=== PATIENT | female | born 1960 | race Caucasian/White ===

== ENCOUNTER 2017-06-24 07:30 | Inpatient (IN) ==
[~2017-06-24 07:30] MED LIST: ACETAMINOPHEN 500 MG TABLET PO ONE; DEXAMETHASONE 4 MG/ML INJECTION IVP ONE; FAMOTIDINE PB 20 MG/50 ML BAG IV ONE; LIDOCAINE 1% (10mg/ml) 2mL INJ PF SDV ID ONE; METOCLOPRAMIDE 10mg/2ml INJECTION IVP ONE; ONDANSETRON 4 MG/2 ML INJECTION IVP ONE; TRANEXAMIC ACID 1,000 MG in NS 100 ML IV ONE
[2017-06-24] MEDS ORDERED: EPINEPHrine PF 0.25 MG, BUPIVACAINE 0.25% PF 30 ML, MORPHINE SULFATE 15 MG, KETOROLAC I... OPSITE ONE (08:00)
[2017-06-24 10:08] VITALS: BMI 30.7
[2017-06-24] MEDS ORDERED: PROPOFOL 500 MG/50 ML VIAL ONE ×2 (10:15→11:52)
[2017-06-24] MEDS ORDERED: MIDAZOLAM 2mg/2ml INJECTION ONE (10:15)
[2017-06-24] MEDS: LR 1,000 ML IV SCH ×2 (10:30→12:41)
[2017-06-24] MEDS: NOZIN NASAL SWAB NAS ONE ×3 (10:31→10:37)
[2017-06-24] MEDS ORDERED: CEFAZOLIN 1 G INJECTION IVP ONE (10:36)
--- NOTE | 2017-06-24 10:54 | Anesthesia Preoperative Report ---
Anesthesia Preoperative Record - Date and Time Date: 06/24/17 Preoperative Diagnosis: Rt HARSH M16.11 Proposed Procedure: Right Total Hip NPO Since Date: 06/24/17 NPO Since Time: 00:00 Allergies/Adverse Reactions: Allergies Allergy/AdvReac Type Severity Reaction Status Date / Time amoxicillin Allergy Unknown Verified 06/24/17 10:15 - Vital Signs Vital Signs: Temperature 98.5 F 06/24/17 10:06 Pulse Rate 88 06/24/17 10:30 Respiratory Rate 15 06/24/17 10:06 Blood Pressure 164/88 H 06/24/17 10:06 Pulse Oximetry 97 06/24/17 10:06 Height and Weight: Height 5 ft 1 in Weight 73.6 kg Body Mass Index 30.7 - Medications Inpatient Medications: Current Medications Epinephrine HCl 0.25 mg/Bupivacaine HCl 30 ml/Morphine Sulfate 15 mg/Ketorolac Tromethamine 60 mg/Sodium Chloride 65.25 mls @ 1 mls/hr OPSITE INTRAOP ONE PRN Reason: Protocol Stop: 06/27/17 01:14 Lactated Ringer's (Lactated Ringers) 1,000 mls @ 50 mls/hr IV .Q20H HARVEY Last Admin: 06/24/17 10:30 Dose: 50 mls/hr Isopropyl Alcohol (Nozin Nasal Swab) 1 each CATALINO PREOP ONE Stop: 06/24/17 14:29 Last Admin: 06/24/17 10:37 Dose: 1 each Sodium Chloride (Iv Flush) 10 - 80 ml IV PRN PRN PRN Reason: [place] Home Medications: Home Medications Medication Instructions Recorded Confirmed Type multivitamin tablet 1 tab PO QAM 04/15/17 06/06/17 History Ascorbate Calcium [Vitamin C] 1,000 mg PO DAILY 06/06/17 06/06/17 History Calcium 600 + D [Caltrate + D] 2 tab PO DAILY 06/06/17 06/06/17 History [place]-3/Dha/Epa/Fish Oil [Fish Oil 2 each PO DAILY 06/06/17 06/06/17 History [place]-3 EC 1,200 mg] Is Patient on Beta Yon?: No - Medical History Respiratory: Reports: Pneumonia (more than 5 years ago) DENIES: Sleep Apnea Cardiovascular: DENIES: Abnormal EKG, Angina, Arrhythmia, Congestive Heart Failure, Coronary Artery Disease, Heart Murmur, Hypertension, Hypotension, High Cholesterol, Myocardial Infarction, Rheumatic Fever, Valvular Heart Disease, Other Gastrointestional: Reports: Gastroesophageal Reflux Disease (rarely) Neuro/Musculoskeletal: Reports: HX.MS.OSAR (RIGHT HIP), Back Problems (DDD) Renal/Endocrine: DENIES: Diabetes Mellitus Type 1, Diabetes Mellitus Type 2, Renal Failure, Dialysis, Thyroid Disease, Weight Loss, Weight Gain, Other Other History: DENIES: Anesthesia Reactions, Now, Blood Transfusions, Chemotherapy , Cancer, Hemophilia, Malignant Hyperthermia, Sickle Cell Disease, Other - Surgical History GI Surgery/Treatments: Reports: Colonoscopy Musculoskeletal Surgery/Tx: Reports: Other (exc ganglion cyst) Anesthesia Reactions: None Hx Family Anesthesia Reaction: No History of Motion Sickness: No - Social History Smoking Status: Never smoker Substance Use Type: does not use Alcohol Intake Frequency: holidays/special occasions only - Pertinent Findings EKG: Sinus Rhythm - Physical Exam Respiratory Exam: Present: lungs clear, bilateral breath sounds equal Cardiovascular Exam: Present: regular rate and rhythm, no murmur - Airway Assessment Mallampati Score: II TMD: 3 Fingerbreadths Neck Extension: good Overall Assessment: no airway concerns - ASA ASA Score: 2 - Plan Anesthesia: Neuroaxial Regional/Trunk Block: Spinal - Discussion Discussion: Discussed risks/options/alternatives of anesthesia and questions answered. Patient consents. Nursing pain assessment noted. Present for Discussion: spouse Attestation Statement: Prior to the delivery of any anesthetic medication, I examined the patient, developed the plan, obtained the patient's consent and discussed the risk and benefits of the procedure with the patient/guardian. - Additional Information Seen by Anesthesia: Yes
[2017-06-24] MEDS ORDERED: FentaNYL 100 MCG/2 ML INJECTION ONE (11:40)
[2017-06-24] MEDS ORDERED: VANCOMYCIN 1,000 MG INJECTION ONE (11:42)
[2017-06-24] MEDS ORDERED: PROPOFOL 20 ML ONE (12:44)
--- NOTE | 2017-06-24 12:44 | Operative Note ---
- Procedure Preoperative Diagnosis: Right hip primary degenerative joint disease Postoperative Diagnosis: Same as preoperative diagnosis. Surgeon: Josue Chapa MD Intervention Analyst: Orville Albrecht Complications: None. Anesthesia: Spinal. Estimated Blood Loss: See Anesthesia Record. Fluids: Please see Anesthesia Record. Description of Procedure: Mrs. Stiles and her right hip were identified and marked in the preoperative holding area. She was brought back to the operating suite and spinal anesthetic was administered. She was then placed in a lateral decubitus position with her right hip up. The right lower extremity was prepped and draped in my normal sterile fashion. Timeout was performed. The Cubicl robotic arm was used to assist with the surgery. A pelvic array was placed into the iliac crest through three small incisions. A direct superior approach was utilized. An approximately 11 cm incision was made in the skin and dissection carried down to the muscle fascia which was then split in line with skin incision. A checkpoint was placed in the greater trochanter. The short external rotators were identified and tagged and detached. A capsulotomy was performed and the hip dislocated. A femoral neck osteotomy was performed at the pre-templated level measuring down from the femoral head 54 mm. The head was removed and acetabulum exposed. As expected her acetabulum was very small. Labrum was removed. The acetabulum was then registered with the robot. The robotic arm was then used to ream with a 47 reamer. The robot then was again used to place a 38 Trident cup in 40 of tilt and 25 of anteversion. A liner was then placed. The proximal femur was exposed and prepared with a cookie cutter followed by reaming and broaching to a size 4. We trialed with a 0 head this was stable but long so we retied with a -5 head and 127 neck and this was much better. After thorough irrigation a final Accolade 2 size 4 stem with 127 neck was placed. Leg length and offset were checked with the robot and were good. A final -5 ceramic 36 mm head was placed and the hip reduced. Betadine solution was used to irrigate throughout the case. It was followed by normal saline irrigation. Joint cocktail was injected throughout soft tissue. The capsulotomy was repaired with Ethibond. Short external rotators were also repaired with Ethibond. 1 g of vancomycin powder was placed into the wound. The muscle fascia was then repaired with #1 Vicryl. I then left my circulation assistant to close the subcutaneous tissue with 2-0 Vicryl followed by running 4-0 Monocryl skin followed by Dermabond and a sterile dressing. The patient with any placed back into supine position and taken to recovery room in the care of anesthesia.
[2017-06-24] MEDS ORDERED: MEPERIDINE 100 MG/ML INJECTION IVP PRN (13:11)
--- NOTE | 2017-06-24 13:33 | Anesthesia Postoperative Note ---
- Date and Time Date: 06/24/17 Time: 13:32 - Status Patient Participated in Evaluation: Patient Participated in Person Vital Signs: Temperature 97.0 F 06/24/17 13:03 Pulse Rate 83 06/24/17 13:25 Respiratory Rate 20 06/24/17 13:25 Blood Pressure 117/60 06/24/17 13:25 Pulse Oximetry 97 06/24/17 13:25 Respiratory Function: Airway Patent Cardiovascular Function: Regular Pulse EKG: Sinus Rhythm Mental Status: Alert and Oriented Pain Intensity: 2 Hydration: IV Infusing Complications During Recover: None Apparent - Follow-Up Instructions Instructions: Per Surgeon
[2017-06-24] MEDS ORDERED: NOZIN NASAL SWAB NAS ONE (13:41)
[2017-06-24] MEDS ORDERED: Oxycodone *IR* 5 MG TABLET PO PRN (13:41)
[2017-06-24] MEDS ORDERED: DiphenhydrAMINE 25 MG CAPSULE PO PRN (13:41)
[2017-06-24] MEDS ORDERED: ONDANSETRON 4 MG/2 ML INJECTION IVP PRN (13:41)
[2017-06-24] MEDS ORDERED: LORazepam 1 MG TABLET PO PRN (13:41)
[2017-06-24] MEDS ORDERED: DiphenhydrAMINE 50 MG/ML INJECTION IVP PRN (13:41)
--- NOTE | 2017-06-24 13:51 | XRay Report ---
Indication: postoperative image PROCEDURE: XR pelvis w/ 1 view RT hip: Encounter: Initial Comparison: December 04, 2015 Findings: Postoperative changes of right total hip replacement are seen. There is expected postoperative subcutaneous gas. No evidence of hardware failure or acute fracture. No retained radiopaque surgical instruments or sponges seen. Impression: New right total hip prosthesis without evidence of immediate complication. .
[2017-06-24] MEDS: NS 1,000 ML IV SCH (13:59)
[2017-06-24] MEDS: ACETAMINOPHEN 325 MG TABLET PO SCH ×3 (14:00→20:37)
[2017-06-24] MEDS: DEXAMETHASONE 20 MG/5 ML INJECTION IVP SCH ×2 (14:06→21:39)
[2017-06-24] MEDS: NOZIN NASAL SWAB NAS SCH ×2 (14:07→21:39)
[2017-06-24] MEDS ORDERED: FALL RISK - PHARMACY CONSULT XX ONE (14:17)
[2017-06-24] MEDS ORDERED: SALINE FLUSH 10ml SYRINGE IV PRN (14:28)
[2017-06-24 15:31] VITALS: RESP 16
[2017-06-24] MEDS: CEFAZOLIN 2 G in NS 100 ML IV SCH (18:18)
[2017-06-24] MEDS: DOCUSATE SODIUM 100 MG CAPSULE PO SCH (20:39)
[2017-06-24] MEDS: ASPIRIN *EC* 81 MG TABLET PO SCH (20:39)
[2017-06-24] MEDS ORDERED: SENNOSIDES 8.6 MG TABLET PO SCH (21:00)
[2017-06-25] MEDS: NS 1,000 ML IV SCH (02:51)
[2017-06-25] MEDS: CEFAZOLIN 2 G in NS 100 ML IV SCH (02:51)
[2017-06-25] MEDS: NOZIN NASAL SWAB NAS SCH ×2 (05:34→14:03)
[2017-06-25] MEDS: DOCUSATE SODIUM 100 MG CAPSULE PO SCH (08:21)
[2017-06-25] MEDS: ASPIRIN *EC* 81 MG TABLET PO SCH (08:21)
[2017-06-25] MEDS: ACETAMINOPHEN 325 MG TABLET PO SCH ×2 (08:21→12:11)
--- NOTE | 2017-06-25 08:29 | Orthopedic Progress Note ---
Date: Date: 06/25/17 Time: 825 Subjective/Severity of Illness: Cristina is doing great. Pain is controlled. No CP, cough or other complaints. She has been up with good tolerance. Leg length feels good. Labs look good. Anticipates discharge today. Orthopedic Objective PO Vital signs: Temperature 97.5 F 06/25/17 07:28 Pulse Rate 91 06/25/17 07:28 Respiratory Rate 16 06/25/17 07:28 Blood Pressure 126/67 06/25/17 07:28 Pulse Oximetry 92 06/25/17 07:28 Height and Weight: Height 5 ft 1 in Weight 164 lb 14.492 oz Body Mass Index 30.7 - Constitutional General Appearance: Present: alert, cooperative, no acute distress - Respiratory Exam Present: non-labored - Extremities Exam Extremities: Present: pulses intact. Absent: calf tenderness - Surgical Site Incision: Mepilex dressing intact, dressing intact, no drainage - Integumentary Exam Present: pink, warm, dry - Neurological Exam Present: intact to light touch, no deficits - Psychiatric Exam Present: alert, normal affect - Labs Result Diagrams: 06/25/17 03:54 06/25/17 03:54 Abnormal lab results 06/25/17 06/25/17 Range/Units 03:54 03:54 Hgb 11.2 L (12-16) GM/DL Hct 33.8 L (36-46) % Glucose 139 H (65-110) MG/DL H & H 06/25/17 Range/Units 03:54 Hgb 11.2 L (12-16) GM/DL Hct 33.8 L (36-46) % Orthopedic Assessment and Plan (1) Primary osteoarthritis of right hip Status: Acute Assessment and Plan: Current anti-coagulation protocol for VTE prophylaxis. SCD's in place. PT/OT services to improve independent function. Discharge Planning per Case Management. - Anticoagulation Therapy Anticoagulation: ASA 81 mg PO BID x6 weeks Hospital Course Summary Disclaimer: The visit summary below is not to be considered part of the above Progress Note.
[2017-06-25] MEDS ORDERED: POLYETHYL GLYCOL 3350 17gm PACKET PO SCH (09:00)
[2017-06-25 11:46] VITALS: BP 129/69; PULSE 95; TEMP 96.2; O2SAT 97
[2017-06-25] MEDS ORDERED: SENNOSIDES 8.6 MG TABLET PO PRN (12:51)
--- NOTE | 2017-06-25 14:07 | Discharge Summary ---
Orthopedic Discharge Info Date of admission: 06/24/17 09:43 Primary care physician: Ismael Vasquez Attending Physician: Johny Chapa MD Consults: 06/24/17 09:44 Consult to Anesthesiology [CONS] Routine Reason For Exam: Preoperative Assessment 06/24/17 13:41 Case Management Consult [CONS] Routine Reason For Exam: Discharge Planning DME-Walker [CONS] Routine Height: 5 ft 1 in Weight: 162 lb 4.163 oz Total Joint Outpatient Therapy [CONS] Routine Comment: Remove dressing in 2 weeks - Discharge Diagnosis (1) Primary osteoarthritis of right hip Status: Acute - Procedures Procedures: Right HARSH - Laboratory Result Diagrams: 06/25/17 03:54 06/25/17 03:54 Laboratory: Abnormal lab results 06/25/17 06/25/17 Range/Units 03:54 03:54 Hgb 11.2 L (12-16) GM/DL Hct 33.8 L (36-46) % Glucose 139 H (65-110) MG/DL H & H 06/25/17 Range/Units 03:54 Hgb 11.2 L (12-16) GM/DL Hct 33.8 L (36-46) % Orthopedic Discharge HPI - HPI Comments This patient was admitted for elective surgical tx of end stage degenerative joint disease that failed to respond to conservative treatment. Further details of this is found in the admission H&P. Orthopedic Hospital Course Hospital course: 06/25/17 14:04 After appropriate preoperative clearance and signing of operative consent, the patient was given IV antibiotics, according to orthopedic protocol. The patient was taken to the operating room and underwent elective joint arthroplasty. Following surgery, antibiotics were discontinued less than 24 hours according to joint protocol. Appropriate anticoagulants were initiated and SCDs added for DVT prevention. The dressing was clean, dry, and intact. Pain control was obtained via multimodal approach. Bowel motivation addressed with scheduled and PRN medications. Early mobilization was initiated through PT services. Discharge arrangements made by a collaborative effort between the patient and Case Management. Follow-up is scheduled in 2-3 weeks. Discharge instructions given by orthopedic providers and nursing staff at discharge. Discharge condition was good. Care extended to > 2 midnight stays?: No Discharge Plan - Med Rec/Dispo Referrals/Follow Up: Johny Chapa MD [Physician] - 07/16/17 1:00 pm [place] Instructions: [facility] Postop Instructions Additional Instructions: [facility] IN [place] ON 06/27/2017 AT 8:45AM FOR PHYSICAL THERAPY WARD. PHONE [phone] Prescriptions: New Aspirin *EC* [Ecotrin] 81 mg PO BID #84 tab Oxycodone *IR* [Roxicodone *Ir*] 5 - 15 mg PO Q3H PRN #60 tab PRN Reason: Breakthrough Pain PEG 3350 17gm PACKET [Miralax] 17 gm PO DAILY packet Acetaminophen [Tylenol] 650 mg PO QID tablet Continue Calcium 600 + D [Caltrate + D] 2 tab PO DAILY [place]-3/Dha/Epa/Fish Oil [Fish Oil [place]-3 EC 1,200 mg] 2 each PO DAILY Ascorbate Calcium [Vitamin C] 1,000 mg PO DAILY ergocalciferol (vitamin D2) 50,000 unit capsule 50,000 unit PO DAILY #2 cap multivitamin tablet 1 tab PO QAM - Disposition 01 Discharged Home, Self-Care - Dismissal Complete Discharge Instructions are:: Complete
[2017-06-26] MEDS ORDERED: BISACODYL 10 MG SUPPOSITORY RECTALLY SCH (20:00)
== END 2017-06-25 14:47 | disposition home or self-care (01) | DRG 470 ==
LOC: SRG 09:43
PROVIDERS: ADMIT Orthopaedic Surgery; ATTEND Orthopaedic Surgery